=== PATIENT | female | born 1935 | race Caucasian/White ===

== ENCOUNTER 2017-08-09 10:36 | Emergency (ER) | payer OTHER ==
[~2017-08-09] VITALS: Ht 160 cm; Wt 65.8 kg
[~2017-08-09 10:36] MED LIST: ACEASPCAF PO; ALEN70; IBUP800 PO; LEVSOD50; MULVITMIND
[2017-08-09 11:31] LABS: BASOPHILS ABSOLUTE AUTO 0.09 K/mm3 (0.00-0.23); BASOPHILS PERCENT AUTO 1 % (0-2); EOSINOPHILS ABSOLUTE AUTO 0.21 K/mm3 (0.00-0.68); EOSINOPHILS PERCENT AUTO 3 % (0-6); Hemoglobin 12.6 g/dL (11.5-16.0); IMMATURE GRAN ABSOLUTE AUTO 0.11 K/mm3 (0.00-0.10); IMMATURE GRAN PERCENT AUTO 1 % (0-1); LYMPHOCYTES ABSOLUTE AUTO 2.77 K/mm3 (0.84-5.20); LYMPHOCYTES PERCENT AUTO 36 % (21-46); MONOCYTES ABSOLUTE AUTO 0.48 K/mm3 (0.16-1.47); MONOCYTES PERCENT AUTO 6 % (4-13); Mean Corpuscular HGB 30.4 pg (26.0-34.0); Mean Corpuscular HGB Conc 33.2 g/dL (31.5-36.5); Mean Corpuscular Volume 92 fL (80-100); Mean Platelet Volume 9.8 fL (9.1-12.4); NEUTROPHILS ABSOLUTE AUTO 3.97 K/mm3 (1.96-9.15); NEUTROPHILS PERCENT AUTO 52 % (41-73); Platelet Count 229 K/mm3 (150-400); RDW Coefficient Variation 13.1 % (11.7-14.2); RDW Standard Deviation 43.7 fL (35.1-46.3); Red Blood Cell Count 4.15 M/mm3 (3.80-5.20); White Blood Cell Count 7.63 K/mm3 (4.00-11.30)
[2017-08-09 11:32] LABS: International Normalized Ratio 1.03; Prothrombin Time Results 10.7 Sec (9.7-11.5)
[2017-08-09 11:45] LABS: Ethanol (Alcohol), Blood, Med <3 mg/dL
[2017-08-09 11:48] LABS: Alanine Aminotransfer (ALT/SGP 100 U/L (12-78); Albumin, Blood 3.9 g/dL (3.4-5.0); Albumin/Globulin Ratio 1.1 (0.8-1.8); Alk Phos 86 U/L (50-136); Anion Gap 10 mmol/L (6-16); Aspartate Aminotrans (AST/SGOT 158 U/L (12-37); Bilirubin, Total 0.8 mg/dL (0.1-1.0); Blood Urea Nitrogen 12 mg/dL (8-24); Bun/Creatinine Ratio 18.5 (12.0-20.0); CO2, Blood 28 mmol/L (21-32); Chloride, Blood 98 mmol/L (98-108); Creatinine, Blood 0.65 mg/dL (0.40-1.00); Globulin, Blood 3.6 g/dL (2.2-4.0); Glomerular Filtration Rate >60 (60-); Glucose, Blood 121 mg/dL (70-99); Potassium, Blood 3.4 mmol/L (3.5-5.5); Sodium, Blood 136 mmol/L (136-145); Total Protein, Blood 7.5 g/dL (6.4-8.2)
[2017-08-09] MEDS ORDERED: HYDR1TAB94 PO (12:24)
[2017-08-09] MEDS ORDERED: Zofran8 MG PO (13:24)
== END 2017-08-09 13:48 | disposition home or self-care (01) ==
LOC: ER 10:36
PROVIDERS: Emergency Medicine
DX: S01.81XA Laceration without foreign body of other part of head, initial encounter (principal); S20.219A Contusion of unspecified front wall of thorax, initial encounter; S09.90XA Unspecified injury of head, initial encounter; R74.0 Nonspecific elevation of levels of transaminase and lactic acid dehydrogenase [LDH]; Z79.899 Other long term (current) drug therapy; Z90.49 Acquired absence of other specified parts of digestive tract; Z90.89 Acquired absence of other organs; Z90.710 Acquired absence of both cervix and uterus; Z87.891 Personal history of nicotine dependence; V49.9XXA Car occupant (driver) (passenger) injured in unspecified traffic accident, initial encounter; Y92.411 Interstate highway as the place of occurrence of the external cause
CPT/HCPCS: 70450; 71045; 72125; 80053; 85025; 85610; 86850; 86900; 86901; 96374; 96375; 99284; G0480; J2060; J2405; J3010

== ENCOUNTER 2018-11-17 09:56 | Day surgery (SDC) | payer OTHER ==
[~2018-11-17] VITALS: Ht 170.2 cm; Wt 60.8 kg
[~2018-11-17 09:56] MED LIST changes: +ATOR10 PO; +ESCI10 PO; +HYDR1TAB94 PO; +Mirapex0.25 MG PO; +Multiple Vitam1 EACH PO; +SYNTHROID100 MC2 PO; +VITAMIN D33000 UNIT PO; +Zofran8 MG PO
--- NOTE | 2018-11-17 10:51 | NUR ---
11/17/18 1051 ÁngelAnya S PT.'S FAMILY CAME OUT & VERBALIZED PT. NEEDING A WARM BLANKET, HER HANDS WERE COLD. PT. GIVEN A WARM BLANKET & A WARM PACK TO WARM UP HER HANDS. PT. KNEES BENT UP, OFFERED PT. A PILLOW UNDER HER KNEES OR RAISE THE FOB BUT PT. VERBALIZED NOT NEEDING ANY OF THOSE SINCE SHE WAS GOING TO TURN ON HER SIDE SOON.
--- NOTE | 2018-11-17 13:24 | NUR ---
11/17/18 1324 Allie Smith LATE ENTRY: PT ARRIVES TO SDU VERY SLEEPY AND DISORIENTED. DR REID WAS IN AND EXPLAINED TO THE PTS DAUGHTER THAT SHE WAS OK AND JUST MAY TAKE A LITTLE LONGER TO WAKE UP. VSS.
== END 2018-11-17 13:50 | disposition home or self-care (01) ==
LOC: ORSCSDS 09:56
PROVIDERS: Student in an Organized Health Care Education/Training Program
PROC: 0DBH8ZX Excision of Cecum, Via Natural or Artificial Opening Endoscopic, Diagnostic (ICD-10-PCS; principal; 2018-11-17 11:15)
PROC: 0DBK8ZX Excision of Ascending Colon, Via Natural or Artificial Opening Endoscopic, Diagnostic (ICD-10-PCS; principal; 2018-11-17 11:15)
DX: Z12.11 Encounter for screening for malignant neoplasm of colon (principal); Z86.010 Personal history of colon polyps; D12.0 Benign neoplasm of cecum; D12.2 Benign neoplasm of ascending colon; K57.30 Diverticulosis of large intestine without perforation or abscess without bleeding; K64.8 Other hemorrhoids; E03.9 Hypothyroidism, unspecified; E78.5 Hyperlipidemia, unspecified; Z79.899 Other long term (current) drug therapy
CPT/HCPCS: 88305; J2704; J7120

== ENCOUNTER → 2019-08-12 | Outpatient (CLI) | payer OTHER | END | disposition home or self-care (01) | LOC: LAB SHORT 11:07 → LAB EV 11:07 | DX: L02.419 Cutaneous abscess of limb, unspecified (principal) | CPT/HCPCS: 87070; 87075; 87205 ==

== ENCOUNTER → 2020-10-13 | Outpatient (CLI) | payer MEDICARE ==
[2020-10-18 10:30] LABS: Stool Occult Bld Immuno 1 Negative (NEGATIVE)
== END | disposition home or self-care (01) ==
LOC: LAB SHORT 10:00 → LAB 10:00
PROVIDERS: Nurse Practitioner Family
DX: Z12.11 Encounter for screening for malignant neoplasm of colon (principal)
CPT/HCPCS: G0328

== ENCOUNTER → 2024-08-12 | Outpatient (CLI) | payer MEDICARE ==
[~2024-08-12] MED LIST changes: +AMOX-CLAV 500-1 EAC5 PO; +DONEPEZIL HCL10 M1 PO; +FOSAMAX70 MG PO; +FUROSEMIDE20 MG PO; +HYDROCODONE-AC1 EA19 PO; +METOPROLOL SUCC25 MG PO; +Potassium Chlo20 ME1 PO; +ZOLOFT25 MG PO
== END | disposition home or self-care (01) ==
LOC: LAB 17:03 → LAB SHORT 17:03
DX: N39.0 Urinary tract infection, site not specified (principal)
CPT/HCPCS: 87077; 87086; 87186

== ENCOUNTER 2024-08-21 11:16 | Emergency (ER) | payer MEDICARE ==
[~2024-08-21] VITALS: Ht 172.7 cm; Wt 62.1 kg
[~2024-08-21 11:16] MED LIST changes: -AMOX-CLAV 500-1 EAC5 PO; -DONEPEZIL HCL10 M1 PO; -FOSAMAX70 MG PO; -FUROSEMIDE20 MG PO; -HYDROCODONE-AC1 EA19 PO; -METOPROLOL SUCC25 MG PO; -Potassium Chlo20 ME1 PO; -ZOLOFT25 MG PO
[2024-08-21] MEDS ORDERED: Ondansetron HCl 2 MG / ML 2ML Vial IV ONE (11:35)
[2024-08-21 11:45] LABS: BASOPHILS PERCENT AUTO 2 % (0-2); EOSINOPHILS ABSOLUTE AUTO 0.32 K/mm3 (0.00-0.68); EOSINOPHILS PERCENT AUTO 5 % (0-6); Hematocrit 34.9 % (33.0-51.0); Hemoglobin 11.6 g/dL (11.5-16.0); IMMATURE GRAN ABSOLUTE AUTO 0.02 K/mm3 (0.00-0.10); IMMATURE GRAN PERCENT AUTO 0 % (0-1); LYMPHOCYTES ABSOLUTE AUTO 1.73 K/mm3 (0.84-5.20); LYMPHOCYTES PERCENT AUTO 28 % (21-46); MONOCYTES ABSOLUTE AUTO 0.68 K/mm3 (0.16-1.47); MONOCYTES PERCENT AUTO 11 % (4-13); Mean Corpuscular HGB 31.5 pg (26.0-34.0); Mean Corpuscular HGB Conc 33.2 g/dL (31.5-36.5); Mean Corpuscular Volume 95 fL (80-100); Mean Platelet Volume 9.3 fL (9.1-12.4); NEUTROPHILS ABSOLUTE AUTO 3.39 K/mm3 (1.96-9.15); NEUTROPHILS PERCENT AUTO 54 % (41-73); Platelet Count 244 K/mm3 (150-400); RDW Coefficient Variation 13.7 % (11.7-14.2); RDW Standard Deviation 47.8 fL (35.1-46.3); Red Blood Cell Count 3.68 M/mm3 (3.80-5.20); White Blood Cell Count 6.24 K/mm3 (4.00-11.30)
[2024-08-21] MEDS ORDERED: DONEPEZIL HCL10 M1 PO (12:13)
[2024-08-21] MEDS ORDERED: HYDROCODONE-AC1 EA19 PO (12:13)
[2024-08-21] MEDS ORDERED: AMOX-CLAV 500-1 EAC5 PO (12:13)
[2024-08-21] MEDS ORDERED: FOSAMAX70 MG PO (12:13)
[2024-08-21] MEDS ORDERED: FUROSEMIDE20 MG PO (12:14)
[2024-08-21] MEDS ORDERED: ZOLOFT25 MG PO (12:15)
[2024-08-21] MEDS ORDERED: METOPROLOL SUCC25 MG PO (12:15)
[2024-08-21] MEDS ORDERED: Potassium Chlo20 ME1 PO (12:15)
[2024-08-21 12:25] LABS: Albumin, Blood 3.3 g/dL (3.4-5.0); Albumin/Globulin Ratio 0.9 (0.8-1.8); Bilirubin, Total 0.6 mg/dL (0.1-1.0); Bun/Creatinine Ratio 18.6 (12.0-20.0); Creatinine, Blood 0.75 mg/dL (0.40-1.00); Globulin, Blood 3.5 g/dL (2.2-4.0); Potassium, Blood 3.6 mmol/L (3.5-5.5); Total Protein, Blood 6.8 g/dL (6.4-8.2)
[2024-08-21 14:41] VITALS: BP 173/98
== END 2024-08-21 14:40 | disposition home or self-care (01) ==
LOC: ER 11:16
PROVIDERS: Emergency Medicine
DX: M54.50 Low back pain, unspecified (principal); Z79.899 Other long term (current) drug therapy; Z79.01 Long term (current) use of anticoagulants; Z87.891 Personal history of nicotine dependence
CPT/HCPCS: 72131; 72192; 80053; 83690; 85025; 99284-25